=== PATIENT | female | born 1970 | race Caucasian/White ===

== ENCOUNTER 2019-01-16 10:07 | Inpatient (IN) | payer OTHER ==
[2019-01-16] VITALS (11 sets, daily range): BP systolic 104–134; BP diastolic 62–88
[~2019-01-16] VITALS: Ht 160 cm; Wt 113.6 kg
[2019-01-16 11:12] LABS: CLARITY,URINE CLEAR (Clear); COLOR,URINE YELLOW (Yellow); GLUCOSE, URINE NEGATIVE (Neg); KETONES,URINE NEGATIVE (Neg); LEUKOCYTE ESTERASE ,URINE TRACE (Neg); NITRITES, URINE NEGATIVE (Neg); OCCULT BLOOD,URINE NEGATIVE (Neg); PROTEIN,URINE NEGATIVE (Neg); UROBILINOGEN,URINE 0.2 E.U/dL (0.2-1.0)
[2019-01-16 11:13] LABS: UA COLLECTION TYPE CLN CATCH MIDSTREAM
[2019-01-16 11:17] LABS: BACTERIA,URINE 1+ /HPF (Neg); MUCUS STRANDS FEW /LPF (Neg); RBC,URINE 0-2 /HPF (0-2); SQUAMOUS EPITHELIAL CELL,UR FEW /LPF (FEW); WBC,URINE 0-4 /HPF (0-4)
[2019-01-16] MEDS ORDERED: normal saline 1000ML IV soln IVB ONE (11:25)
[2019-01-16] MEDS ORDERED: morphine 10mg/ml inj. IV ONE (11:25)
[2019-01-16] MEDS ORDERED: ondansetron/PF 4mg/2ml inj IV ONE (11:25)
[2019-01-16] MEDS ORDERED: CYCL-1 PO (11:57)
[2019-01-16] MEDS ORDERED: morphine 4 MG/ML inj SYRINge IV ONE ×3 (12:15→15:00)
[2019-01-16 12:40] LABS: BASOPHILS % (AUTO) 0.6 % (0-1); EOSINOPHILS # (AUTO) 0.3 X10'3 (0-0.9); EOSINOPHILS % (AUTO) 3.5 % (0-6); HEMATOCRIT 40.1 % (35.0-45.0); HEMOGLOBIN 13.7 g/dl (12.0-16.0); LYMPHOCYTES # (AUTO) 2.3 X10'3 (1.1-4.8); LYMPHOCYTES % (AUTO) 29.8 % (21-51); MEAN CORPUSCULAR HGB CONC 34.1 g/dL (33.0-36.5); MEAN CORPUSCULAR VOLUME 90.9 FL (78-98); MEAN PLATELET VOLUME 8.2 FL (7.4-10.4); MONOCYTES # (AUTO) 0.5 X10'3 (0-0.9); MONOCYTES % (AUTO) 6.9 % (2-12); NEUTROPHILS # (AUTO) 4.5 X10'3 (1.8-7.7); NEUTROPHILS % (AUTO) 59.2 % (42-75); PLATELET COUNT 259 X10'3 (140-440); RED BLOOD COUNT 4.42 X10'6 (4.20-5.60); RED CELL DISTRIBUTION WIDTH 13.2 % (11.5-14.5); WHITE BLOOD COUNT 7.6 X10'3 (4.5-11.0)
[2019-01-16 12:57] LABS: ALANINE AMINOTRANSFERASE 25 U/L (12-78); ALBUMIN 3.7 G/DL (3.4-5.0); ALBUMIN/GLOBULIN RATIO 0.9 (1.1-1.5); ALKALINE PHOSPHATASE 81 IU/L (46-116); AMYLASE 29 U/L (25-115); ANION GAP 8 (8-16); ASPARTATE AMINO TRANSFERASE 10 U/L (10-37); BILIRUBIN,TOTAL 0.4 MG/DL (0.1-1.0); BLOOD UREA NITROGEN 10 MG/DL (7-18); BUN/CREATININE RATIO 14.3 (6.6-38.0); CALCIUM 9.6 MG/DL (8.5-10.1); CHLORIDE 106 MMOL/L (99-107); GLUCOSE 80 MG/DL (70-104); LIPASE 77 U/L (73-393); POTASSIUM 3.7 MMOL/L (3.5-5.1); SODIUM 139 MMOL/L (135-145); TOTAL CARBON DIOXIDE 25.1 MMOL/L (24-32); TOTAL PROTEIN 7.9 G/DL (6.4-8.2); eGFR 90 ML/MIN
[2019-01-16] MEDS ORDERED: iohexol 300mg/ml 100ml inj. ONE (13:07)
--- NOTE | 2019-01-16 13:28 | NUR ---
PT TO CT, WILL REQUEST ADDITIONAL PAIN MED
--- NOTE | 2019-01-16 14:15 | NUR ---
pt resting in bed co intermittent abdominal pain,family member at the bedside,pt vitals stable.
[2019-01-16] MEDS ORDERED: cefotetan 1gm/50ml IVPB 50 ML IV ONE ×2 (14:40→17:10)
[2019-01-16] MEDS ORDERED: potassium Cl 40MEQ/NS 500ml 500 ML IV PRN (15:35)
[2019-01-16] MEDS ORDERED: HYDROmorphone inj. 0.5 MG/0.5 ML DISP.SYRIN IV PRN ×2 (15:35→18:50)
[2019-01-16] MEDS ORDERED: potassium CL 10mEq/100ml bag 100 ML IV PRN (15:35)
[2019-01-16] MEDS ORDERED: magnesium 2GM in 50ml NS 50 ML IV PRN (15:35)
[2019-01-16] MEDS ORDERED: potassium Cl 20 mEq SR tablet PO PRN (15:35)
[2019-01-16] MEDS ORDERED: magnesium 4gm in 100ml NS 100 ML IV PRN (15:35)
[2019-01-16] MEDS ORDERED: magnesium Cl slow-release 64mg tablet PO PRN (15:35)
--- NOTE | 2019-01-16 16:22 | NUR ---
report given to mary in or
[2019-01-16] MEDS ORDERED: BUPIVAcaine/PF 2.5 mg/ml (0.25%) 30ml vial ONE (16:28)
[2019-01-16] MEDS ORDERED: ceFAZolin 1000mg inj ONE (16:28)
[2019-01-16] MEDS ORDERED: sevoflurane 250ml liquid IH ONE (17:07)
[2019-01-16] MEDS ORDERED: fentaNYL /PF 50mcg/ml 5ml ampule ONE (17:15)
[2019-01-16] MEDS ORDERED: midazolam 2 mg/2 ml injection ONE (17:15)
[2019-01-16] MEDS ORDERED: LIDOcaine 2% (20mg/ml) 5ml vial ONE (17:49)
[2019-01-16] MEDS ORDERED: rocuronium 10mg/ml inj IV ONE (17:49)
[2019-01-16] MEDS ORDERED: dexamethasone sod phosphate 4mg/ml inj. ONE (17:49)
[2019-01-16] MEDS ORDERED: ondansetron/PF 4mg/2ml inj ONE (17:49)
[2019-01-16] MEDS ORDERED: glycopyrrolate 0.2mg/ml inj ONE (17:49)
[2019-01-16] MEDS ORDERED: neostigmine methylsulfate 1 MG/ML 10ml vial ONE (17:49)
[2019-01-16] MEDS ORDERED: propofol inj 20 ML IV ONE (17:49)
--- NOTE | 2019-01-16 18:15 | NUR ---
Received from OR via BED , accompanied by Anesthesiologist DR BANGURA and report given by Anesthesiolgist. PATIENT WAKING UP, C/O PAIN INTERMITTENTLY, V/S WNL, NEUROVASCULAR CHECKS INTACT, 22G PIV RUE, SCD ON, 5 BANDAIDS TO LAP SIGHTS OF ABDOMEN CDI.
[2019-01-16] MEDS ORDERED: ondansetron/PF 4mg/2ml inj IV PRN (18:20)
[2019-01-16] MEDS ORDERED: ringers solution, lacted 1,000 ML IV SCH (18:20)
[2019-01-16] MEDS ORDERED: morphine 4 MG/ML inj SYRINge IV PRN (18:20)
[2019-01-16] MEDS ORDERED: meperidine/PF 25mg/ml syringe IV PRN ×3 (18:20)
[2019-01-16] MEDS ORDERED: proCHLORperazine 10 MG/2 ml inj IV PRN (18:20)
[2019-01-16] MEDS ORDERED: meperidine/PF 25mg/ml syringe ONE (18:25)
[2019-01-16] MEDS: ondansetron/PF 4mg/2ml inj IV PRN (18:34)
[2019-01-16] MEDS: morphine 4 MG/ML inj SYRINge IV PRN ×2 (18:37→18:45)
[2019-01-16] MEDS ORDERED: acetaminophen 1,000mg/100ml IV 100 ML IV ONE (18:40)
[2019-01-16] MEDS: HYDROmorphone inj. 0.5 MG/0.5 ML DISP.SYRIN IV PRN ×2 (18:54→19:00)
[2019-01-16] MEDS ORDERED: ketorolac trometh. 30mg/ml inj. IV ONE (19:05)
--- NOTE | 2019-01-16 19:18 | NUR ---
ORDER RECIEVED FROM DR KING FOR DILAUDID [employer] AND TORADOL
[2019-01-16] MEDS: HYDROmorphone/NS 1 mg/ml CADD 50 ML IV SCH ×3 (19:33→23:00)
--- NOTE | 2019-01-16 19:35 | NUR ---
PATIENT A&OX4, STATES PAIN MODERATE AND CONTROLLED NOW AFTER TORADOL AND PCTS, V/S WNL, NEUROVASCULAR CHECKS INTACT, 20G PIV LUE, SCD ON, 5 BANDAIDS TO LAP SIGHTS OF ABDOMEN CDI. PATIENT TAKEN TO [address] [place] [address] ALL BELONGINGS AND HOOKED UP TO MONITORS IN ROOM AND REPORT GIVEN TO SAMMI WILEY WHO HAS TAKEN OVER PATIENT CARE.
[2019-01-16] MEDS: diphenhydrAMINE 50 mg/ml inj IV PRN (21:32)
[2019-01-17] MEDS: HYDROmorphone/NS 1 mg/ml CADD 50 ML IV SCH ×7 (01:00→13:00)
[2019-01-17] MEDS: normal saline 1000ml 1,000 ML IV SCH ×4 (03:12→21:33)
[2019-01-17] MEDS: diphenhydrAMINE 50 mg/ml inj IV PRN ×2 (03:12→09:29)
[2019-01-17 06:10] LABS: BASOPHILS % (AUTO) 0.3 % (0-1); EOSINOPHILS % (AUTO) 0.5 % (0-6); HEMATOCRIT 36.1 % (35.0-45.0); HEMOGLOBIN 12.6 g/dl (12.0-16.0); LYMPHOCYTES # (AUTO) 0.4 X10'3 (1.1-4.8); LYMPHOCYTES % (AUTO) 4.6 % (21-51); MEAN CORPUSCULAR HEMOGLOBIN 31.5 PG (27.0-31.0); MEAN CORPUSCULAR HGB CONC 34.9 g/dL (33.0-36.5); MEAN CORPUSCULAR VOLUME 90.2 FL (78-98); MEAN PLATELET VOLUME 8.6 FL (7.4-10.4); MONOCYTES # (AUTO) 0.4 X10'3 (0-0.9); MONOCYTES % (AUTO) 3.7 % (2-12); NEUTROPHILS # (AUTO) 8.9 X10'3 (1.8-7.7); NEUTROPHILS % (AUTO) 90.9 % (42-75); PLATELET COUNT 251 X10'3 (140-440); RED CELL DISTRIBUTION WIDTH 13.2 % (11.5-14.5); WHITE BLOOD COUNT 9.7 X10'3 (4.5-11.0)
[2019-01-17 06:37] LABS: ALANINE AMINOTRANSFERASE 306 U/L (12-78); ALBUMIN 3.1 G/DL (3.4-5.0); ALBUMIN/GLOBULIN RATIO 0.8 (1.1-1.5); ALKALINE PHOSPHATASE 139 IU/L (46-116); ANION GAP 8 (8-16); ASPARTATE AMINO TRANSFERASE 219 U/L (10-37); BILIRUBIN,TOTAL 0.4 MG/DL (0.1-1.0); BLOOD UREA NITROGEN 10 MG/DL (7-18); BUN/CREATININE RATIO 12.8 (6.6-38.0); CALCIUM 8.8 MG/DL (8.5-10.1); CHLORIDE 104 MMOL/L (99-107); CREATININE 0.78 MG/DL (0.40-0.90); GLUCOSE 112 MG/DL (70-104); MAGNESIUM 1.6 MG/DL (1.5-2.4); POTASSIUM 3.9 MMOL/L (3.5-5.1); SODIUM 139 MMOL/L (135-145); TOTAL CARBON DIOXIDE 26.7 MMOL/L (24-32); eGFR 79 ML/MIN
[2019-01-17 07:00] VITALS: BP 132/77
[2019-01-17] MEDS: K and/or MAG REPLACEMENT MC SCH (08:00)
[2019-01-17 12:00] VITALS: BP 107/66
--- NOTE | 2019-01-17 18:20 | NUR ---
Patient in room [facility]. I have received report from Kamini WILEY and had the opportunity to ask questions and assume patient care.
[2019-01-17 20:00] VITALS: BP 104/67
--- NOTE | 2019-01-17 20:51 | NUR ---
CADD take down waste 34.0mg of Dilaudid. CADD had already been dc'd unable to waste on EMAR. Waste with Zoey Lozoya RN
--- NOTE | 2019-01-17 20:53 | NUR ---
Wasted 34.0 mg dilaudid from CADD takedown with SAURABH Poe.
[2019-01-17] MEDS: ondansetron/PF 4mg/2ml inj IV PRN (21:25)
[2019-01-17] MEDS: acetaminophen 325mg tablet PO PRN (22:47)
[2019-01-18] VITALS: BP 126/76
[2019-01-18] MEDS: oxyCODONE IR 5mg (immed. release) tablet PO PRN ×5 (01:07→20:09)
[2019-01-18] MEDS: normal saline 1000ml 1,000 ML IV SCH ×2 (01:08→17:33)
[2019-01-18 05:47] LABS: BASOPHILS % (AUTO) 0.1 % (0-1); EOSINOPHILS # (AUTO) 0.4 X10'3 (0-0.9); EOSINOPHILS % (AUTO) 3.7 % (0-6); HEMOGLOBIN 11.9 g/dl (12.0-16.0); MEAN CORPUSCULAR HEMOGLOBIN 30.8 PG (27.0-31.0); MEAN CORPUSCULAR HGB CONC 34.1 g/dL (33.0-36.5); MEAN CORPUSCULAR VOLUME 90.4 FL (78-98); MEAN PLATELET VOLUME 8.3 FL (7.4-10.4); MONOCYTES # (AUTO) 0.6 X10'3 (0-0.9); MONOCYTES % (AUTO) 5.7 % (2-12); NEUTROPHILS % (AUTO) 80.5 % (42-75); PLATELET COUNT 256 X10'3 (140-440); RED BLOOD COUNT 3.87 X10'6 (4.20-5.60); RED CELL DISTRIBUTION WIDTH 12.9 % (11.5-14.5); WHITE BLOOD COUNT 9.9 X10'3 (4.5-11.0)
[2019-01-18 06:09] LABS: ALANINE AMINOTRANSFERASE 218 U/L (12-78); ALBUMIN 3.3 G/DL (3.4-5.0); ALBUMIN/GLOBULIN RATIO 0.8 (1.1-1.5); ALKALINE PHOSPHATASE 132 IU/L (46-116); ANION GAP 10 (8-16); ASPARTATE AMINO TRANSFERASE 65 U/L (10-37); BILIRUBIN,TOTAL 0.4 MG/DL (0.1-1.0); BLOOD UREA NITROGEN 10 MG/DL (7-18); BUN/CREATININE RATIO 13.9 (6.6-38.0); CALCIUM 8.7 MG/DL (8.5-10.1); CHLORIDE 104 MMOL/L (99-107); CREATININE 0.72 MG/DL (0.40-0.90); GLUCOSE 101 MG/DL (70-104); MAGNESIUM 1.7 MG/DL (1.5-2.4); POTASSIUM 3.4 MMOL/L (3.5-5.1); SODIUM 140 MMOL/L (135-145); TOTAL PROTEIN 7.3 G/DL (6.4-8.2); eGFR 87 ML/MIN
--- NOTE | 2019-01-18 06:39 | NUR ---
Problems reprioritized. Patient report given, questions answered & plan of care reviewed with Kamini WILEY.
[2019-01-18 08:00] VITALS: BP 116/69
[2019-01-18] MEDS: K and/or MAG REPLACEMENT MC SCH (08:00)
[2019-01-18] MEDS: acetaminophen 325mg tablet PO PRN (09:02)
[2019-01-18] MEDS ORDERED: OXYC-658 PO (10:08)
[2019-01-18 12:00] VITALS: BP 120/74
[2019-01-18] MEDS ORDERED: pantoprazole 40mg Tablet.DR PO ONE (12:10)
[2019-01-18] MEDS ORDERED: ondansetron 4mg rapidly disintigrating tab PO PRN (13:20)
[2019-01-18] MEDS: aspirin/acetaminophen/caffeine tablet PO PRN ×2 (14:00→20:59)
--- NOTE | 2019-01-18 18:47 | NUR ---
Patient in room [facility]. I have received report from Kamini WILEY and had the opportunity to ask questions and assume patient care.
[2019-01-18 20:00] VITALS: BP 147/85
[2019-01-18] MEDS ORDERED: pantoprazole 40 MG vial IV SCH (20:00)
[2019-01-18] MEDS: potassium Cl 20 mEq SR tablet PO PRN (20:06)
[2019-01-18] MEDS: metoclopramide 5 mg/ml inj IV SCH ×2 (20:07→20:30)
[2019-01-18] MEDS: ESOMEPRAZOLE 40 MG VIAL IV SCH (20:59)
--- NOTE | 2019-01-18 21:16 | NUR ---
Patients medication OXY IR and K-DUR did not scan. Medications dose verified and given as ordered
[2019-01-19] MEDS: potassium Cl 20 mEq SR tablet PO PRN (00:24)
[2019-01-19] MEDS: oxyCODONE IR 5mg (immed. release) tablet PO PRN ×3 (00:31→10:17)
--- NOTE | 2019-01-19 00:35 | NUR ---
scanner did not scan med Pina gone over with Padmini WILEY. Medication given as per protocol
[2019-01-19 00:47] VITALS: BP 105/66
--- NOTE | 2019-01-19 02:45 | NUR ---
Patient arrived on unit via wheelchair, Amisha WILEY accompanied her.
[2019-01-19] MEDS: normal saline 1000ml 1,000 ML IV SCH ×2 (03:33→05:52)
[2019-01-19 06:04] LABS: BASOPHILS % (AUTO) 0.4 % (0-1); EOSINOPHILS # (AUTO) 0.5 X10'3 (0-0.9); EOSINOPHILS % (AUTO) 7.4 % (0-6); HEMATOCRIT 33.7 % (35.0-45.0); HEMOGLOBIN 11.4 g/dl (12.0-16.0); MEAN CORPUSCULAR HGB CONC 33.8 g/dL (33.0-36.5); MEAN CORPUSCULAR VOLUME 91.8 FL (78-98); MEAN PLATELET VOLUME 8.4 FL (7.4-10.4); MONOCYTES # (AUTO) 0.4 X10'3 (0-0.9); MONOCYTES % (AUTO) 5.6 % (2-12); NEUTROPHILS # (AUTO) 3.7 X10'3 (1.8-7.7); NEUTROPHILS % (AUTO) 56.6 % (42-75); PLATELET COUNT 236 X10'3 (140-440); RED BLOOD COUNT 3.67 X10'6 (4.20-5.60); RED CELL DISTRIBUTION WIDTH 12.8 % (11.5-14.5); WHITE BLOOD COUNT 6.6 X10'3 (4.5-11.0)
--- NOTE | 2019-01-19 06:35 | NUR ---
Problems reprioritized. Patient report given, questions answered & plan of care reviewed with Sonja WILEY.
[2019-01-19 06:43] LABS: ALANINE AMINOTRANSFERASE 124 U/L (12-78); ALBUMIN 2.8 G/DL (3.4-5.0); ALBUMIN/GLOBULIN RATIO 0.8 (1.1-1.5); ALKALINE PHOSPHATASE 97 IU/L (46-116); ANION GAP 9 (8-16); ASPARTATE AMINO TRANSFERASE 21 U/L (10-37); BILIRUBIN,TOTAL 0.3 MG/DL (0.1-1.0); BLOOD UREA NITROGEN 8 MG/DL (7-18); BUN/CREATININE RATIO 11.6 (6.6-38.0); CALCIUM 8.7 MG/DL (8.5-10.1); CHLORIDE 108 MMOL/L (99-107); CREATININE 0.69 MG/DL (0.40-0.90); GLUCOSE 81 MG/DL (70-104); MAGNESIUM 1.7 MG/DL (1.5-2.4); POTASSIUM 3.8 MMOL/L (3.5-5.1); SODIUM 142 MMOL/L (135-145); TOTAL CARBON DIOXIDE 25.2 MMOL/L (24-32); TOTAL PROTEIN 6.5 G/DL (6.4-8.2); eGFR > 90 ML/MIN
[2019-01-19 07:10] VITALS: BP 115/79
[2019-01-19] MEDS: K and/or MAG REPLACEMENT MC SCH (07:59)
[2019-01-19] MEDS: metoclopramide 5 mg/ml inj IV SCH (08:10)
[2019-01-19] MEDS: ESOMEPRAZOLE 40 MG VIAL IV SCH (08:10)
[2019-01-19] MEDS: aspirin/acetaminophen/caffeine tablet PO PRN (08:18)
[2019-01-19] MEDS ORDERED: ONDA4TAB6 PO (09:55)
== END 2019-01-19 12:47 | disposition home or self-care (01) | DRG 418 ==
LOC: ER 10:08 → SUR 3N 16:21 → CMPBEDREQ 01-18 19:43
PROVIDERS: ADMIT Internal Medicine; ATTEND Internal Medicine
PROC: 0DTJ4ZZ Resection of Appendix, Percutaneous Endoscopic Approach (ICD-10-PCS; 2019-01-16)
PROC: 0FT44ZZ Resection of Gallbladder, Percutaneous Endoscopic Approach (ICD-10-PCS; principal; 2019-01-16 17:07)
DX: K80.12 Calculus of gallbladder with acute and chronic cholecystitis without obstruction (principal); K35.30 Acute appendicitis with localized peritonitis, without perforation or gangrene; K56.7 Ileus, unspecified; Z68.41 Body mass index [BMI] 40.0-44.9, adult; R74.0 Nonspecific elevation of levels of transaminase and lactic acid dehydrogenase [LDH]; K83.8 Other specified diseases of biliary tract; E66.01 Morbid (severe) obesity due to excess calories; K21.9 Gastro-esophageal reflux disease without esophagitis; Z90.710 Acquired absence of both cervix and uterus; Z88.2 Allergy status to sulfonamides; Z79.899 Other long term (current) drug therapy; Z87.891 Personal history of nicotine dependence
CPT/HCPCS: 96361; 96365; 96375; 96376; 99285; Z7506; 36415; 74177; 74181; 76700; 80053; 81001; 82150; 83690; 83735; 85025; 85610; 87070; 87088; A7000; G0378; J0131; J0690; J1100; J1170; J1200; J1885; J2001; J2175; J2250; J2270; J2405; J2704; J2710; J2765; J3010; J3490; J7030; J7120; Q9967